=== PATIENT | female | born 1935 | race Caucasian/White ===

== ENCOUNTER 2019-06-07 17:17 | Emergency (ER) | payer MEDICARE ==
[~2019-06-07] VITALS: Ht 160 cm; Wt 72.6 kg
--- NOTE | 2019-06-07 17:25 | NUR ---
pt bibra from home to er bed 04. per report, pt's caregiver got concerned about pt being more sleepy today than usual. pt upon assessment is arousable, selectively answering random questions then closses eyes. pt placed on monitor. stable vitals noted. awaiting md hannah.
--- NOTE | 2019-06-07 17:38 | NUR ---
iv line started blood drawn and sent to lab.
--- NOTE | 2019-06-07 17:49 | NUR ---
dr mccauley at bedside for eval. family at bedside.
[2019-06-07 18:06] LABS: BASOPHILS # (AUTO) 0.1 /CMM (0.0-0.2); BASOPHILS % (AUTO) 1.2 % (0.0-2.0); HEMATOCRIT 40 % (33-45); HEMOGLOBIN 13.2 g/dL (11.5-14.8); LYMPHOCYTES # (AUTO) 1.9 /CMM (0.8-4.8); LYMPHOCYTES % (AUTO) 26.7 % (20.0-44.0); MEAN CORPUSCULAR HGB CONC 33 g/dl (31.0-36.0); MEAN CORPUSCULAR VOLUME 84 fL (82-100); MONOCYTES # (AUTO) 0.7 /CMM (0.1-1.30); MONOCYTES % (AUTO) 9.3 % (2.0-12.0); NEUTROPHILS # (AUTO) 4.5 /CMM (1.8-8.9); NEUTROPHILS % (AUTO) 62.8 % (43.0-81.0); PLATELET COUNT (AUTO) 242 /CMM (150-450); RED BLOOD CELL COUNT(AUTO) 4.72 MIL/uL (4.0-5.2); WHITE BLOOD COUNT (AUTO) 7.2 K/uL (4.3-11.0)
[2019-06-07 18:18] LABS: CALCIUM, SERUM 8.6 mg/dL (8.5-10.1); CARBON DIOXIDE 28 mmol/L (21-32); CHLORIDE 105 mmol/L (98-107); GLUCOSE 84 mg/dL (74-106); POTASSIUM 3.8 mmol/L (3.5-5.1); SODIUM SERUM 140 mmol/L (136-145); UREA NITROGEN, BLOOD 12 mg/dL (7-18)
[2019-06-07 18:23] LABS: ALANINE AMINOTRANSFERASE 13 U/L (12-78); ALBUMIN 3.1 g/dL (3.4-5.0); ALCOHOL, BLOOD < 3 mg/dL (0-0); ALKALINE PHOSPHATASE 99 U/L (46-116); ASPARTATE AMINOTRANSFERASE 17 U/L (15-37); BILIRUBIN,DIRECT 0.1 mg/dL (0.0-0.2); BILIRUBIN,TOTAL 0.8 mg/dL (0.2-1.0); TOTAL PROTEIN, SERUM 6.9 g/dL (6.4-8.2)
[2019-06-07 18:28] LABS: APPEARANCE,URINE Cloudy (CLEAR); BILIRUBIN,URINE Negative (NEGATIVE); BLOOD, URINE Small Ery/uL (NEGATIVE); COLOR,URINE Yellow (YELLOW); KETONES,URINE Negative (NEGATIVE); LEUKOCYTE ESTERASE ,URINE Large (NEGATIVE); NITRITE, URINE Negative (NEGATIVE); PH,URINE 6.5 (5.0-8.0); PROTEIN,URINE Trace mg/dl (NEGATIVE); UGLUCOSE Negative (NEGATIVE); UROBILINOGEN,URINE 0.2 EU/dL (0.2)
[2019-06-07 18:39] LABS: BACTERIA,URINE 2+ /HPF (None Seen); SQUAMOUS EPITHELIAL CELL,UR Few /HPF (None Seen); WBC,URINE 51-80 /HPF (0-3)
[2019-06-07] MEDS ORDERED: CEFTRIAXONE 1 G in IV D5W 50 ML IV ONE (19:00)
[2019-06-07] MEDS ORDERED: CEFTRIAXONE 1GM BAG (ER ONLY) 50 ML IV ONE (19:01)
--- NOTE | 2019-06-07 19:12 | NUR ---
report to shaker repairer lynda buitrago for rené.
[2019-06-07 19:17] LABS: SERUM AMMONIA 35 umol/L (11-32)
[2019-06-07 19:26] LABS: THYROID STIMULATING HORMONE 3.391 uIU/mL (0.358-3.74)
--- NOTE | 2019-06-07 19:59 | NUR ---
PATIENT RESTING COMFORTABLY IN BED 4 WITH FAMILY MEMBERS AT BEDSIDE. NOT IN ANY DISTRESS. CONNECTED TO MONITOR. BREATHING EVENLY AND UNLABORED WITH NO SHORTNESS OF BREATH.
[2019-06-07 20:35] VITALS: BP 129/72
--- NOTE | 2019-06-07 20:35 | NUR ---
IV removed. Catheter intact and site benign. Pressure and 4x4 applied to site. No bleeding noted.Patient discharged to home in stable condition. Written and verbal after care instructions given. Patient verbalizes understanding of instruction. Prescriptions provided to the patient and explained.
== END 2019-06-07 20:36 | disposition home or self-care (01) ==
LOC: ER 17:18
DX: N39.0 Urinary tract infection, site not specified (principal); I10 Essential (primary) hypertension; E78.00 Pure hypercholesterolemia, unspecified; G30.9 Alzheimer's disease, unspecified; F02.80 Dementia in other diseases classified elsewhere, unspecified severity, without behavioral disturbance, psychotic disturbance, mood disturbance, and anxiety
CPT/HCPCS: 36415; 70450; 80048; 80076; 80307; 81001; 82140; 84443; 84484; 85025; 85730; 87086; 93005; 96365; 99284; J0696 ×2; J7060; 81000-TC; G0480

== ENCOUNTER 2020-08-21 16:28 | Emergency (ER) | payer MEDICARE ==
[~2020-08-21] VITALS: Ht 160 cm; Wt 81.2 kg
--- NOTE | 2020-08-21 16:34 | NUR ---
BLOOD SUGAR 98.
--- NOTE | 2020-08-21 16:34 | NUR ---
PATIENT BIB RA 80 FROM HOME,CAREGIVER CALLED 911,AMS,RESPONDS TO PAIN,PINPOINT PUPILS,NO RESPONSE TO NARCAN,BLOOD SUGAR 100. STROKE CODE ACTIVATED. BLOOD SUGAR CHECK DONE. PATIENT IS ON MONITOR. WARM BLANKET ON FOR COMFORT.
[2020-08-21 16:45] LABS: BASOPHILS # (AUTO) 0.1 /CMM (0.0-0.2); BASOPHILS % (AUTO) 0.6 % (0.0-2.0); HEMATOCRIT 42 % (33-45); HEMOGLOBIN 13.9 g/dL (11.5-14.8); LYMPHOCYTES # (AUTO) 1.7 /CMM (0.8-4.8); LYMPHOCYTES % (AUTO) 20.8 % (20.0-44.0); MEAN CORPUSCULAR HGB CONC 33 g/dl (31.0-36.0); MEAN CORPUSCULAR VOLUME 86 fL (82-100); MONOCYTES # (AUTO) 0.7 /CMM (0.1-1.30); MONOCYTES % (AUTO) 8.6 % (2.0-12.0); NEUTROPHILS # (AUTO) 5.6 /CMM (1.8-8.9); PLATELET COUNT (AUTO) 240 /CMM (150-450); RED BLOOD CELL COUNT(AUTO) 4.96 MIL/uL (4.0-5.2)
--- NOTE | 2020-08-21 16:45 | NUR ---
The patient A/O X2. Able to communicate with clear speech. Able to follow commands. no weakness deficiency on extremities noted. respiration regular and unlabored. denies SOB. Denies pain. patient in room air and oxygen saturation WNL. Will continue to monitor.
--- NOTE | 2020-08-21 16:45 | NUR ---
STROKE CODE WAS CANCELED BY DR HAWLEY.
--- NOTE | 2020-08-21 16:54 | NUR ---
DAUGHTER,LOUANN ROWE [phone], CAME AND SPOKE WITH DR CORTES AND PATIENT ON THE WAY TO CT, SHE DID APPEAR TO RECOGNIZE DAUGHTER. ANOTHER DAUGHTER IN [place],SEDA ROWE, , CAN BE CALLED IF MORE INFORMATION IS NEEDED.
[2020-08-21 17:00] LABS: SERUM AMMONIA 10 umol/L (11-32)
[2020-08-21] MEDS ORDERED: IV NS 0.9% 1,000 ML BAG IV ONE (17:00)
[2020-08-21] MEDS ORDERED: SERT50TA PO (17:11)
[2020-08-21] MEDS ORDERED: MEMA10TA PO (17:11)
[2020-08-21] MEDS ORDERED: DILT180C93 PO (17:11)
[2020-08-21] MEDS ORDERED: PROG100C15 PO (17:11)
[2020-08-21] MEDS ORDERED: LORA-259 PO (17:11)
[2020-08-21] MEDS ORDERED: CHOL200059 PO (17:11)
[2020-08-21] MEDS ORDERED: ESTR0.5T4 PO (17:11)
[2020-08-21] MEDS ORDERED: ATOR10TA PO (17:11)
[2020-08-21 17:16] LABS: ACETAMINOPHEN < 10 ug/ml (10-30); ALANINE AMINOTRANSFERASE 18 U/L (12-78); ALBUMIN 3.4 g/dL (3.4-5.0); ALCOHOL, BLOOD < 3 mg/dL (0-0); ALKALINE PHOSPHATASE 76 U/L (46-116); ASPARTATE AMINOTRANSFERASE 19 U/L (15-37); BILIRUBIN,DIRECT 0.2 mg/dL (0.0-0.2); BILIRUBIN,TOTAL 0.9 mg/dL (0.2-1.0); CALCIUM, SERUM 9.1 mg/dL (8.5-10.1); CARBON DIOXIDE 28 mmol/L (21-32); CHLORIDE 105 mmol/L (98-107); CREATININE 1.1 mg/dL (0.6-1.3); GLUCOSE 99 mg/dL (74-106); POTASSIUM 4.1 mmol/L (3.5-5.1); SODIUM SERUM 141 mmol/L (136-145); TOTAL PROTEIN, SERUM 7.4 g/dL (6.4-8.2); UREA NITROGEN, BLOOD 25 mg/dL (7-18)
[2020-08-21 17:21] LABS: THYROID STIMULATING HORMONE 2.813 uIU/mL (0.358-3.74)
--- NOTE | 2020-08-21 17:55 | NUR ---
URINE COLLECTED AND TAKEN IT TO THE LAB
[2020-08-21 18:10] LABS: BILIRUBIN,URINE Negative (NEGATIVE); COLOR,URINE YELLOW (YELLOW); LEUKOCYTE ESTERASE ,URINE Negative (NEGATIVE); NITRITE, URINE Negative (NEGATIVE); PROTEIN,URINE Negative (NEGATIVE); UGLUCOSE Negative (NEGATIVE); UROBILINOGEN,URINE 0.2 EU/dL (0.2)
[2020-08-21 18:21] LABS: BACTERIA,URINE Rare /HPF (None Seen); SQUAMOUS EPITHELIAL CELL,UR 0-2 /HPF (None Seen); WBC,URINE 0-2 /HPF (0-3)
[2020-08-21 18:59] VITALS: BP 131/80
--- NOTE | 2020-08-21 18:59 | NUR ---
The patient is alert and oriented x2. Denies pain. In room air and denies SOB. Respiration regular and unlabored. Patient discharged to home in stable condition. Written and verbal after care instructions given. Patient verbalizes understanding of instruction. The patient discharged in stable conditon accompanied by daughter and caregiver.
== END 2020-08-21 19:00 | disposition home or self-care (01) ==
LOC: ER 16:35
DX: R41.82 Altered mental status, unspecified (principal); I10 Essential (primary) hypertension; E78.5 Hyperlipidemia, unspecified; F03.90 Unspecified dementia, unspecified severity, without behavioral disturbance, psychotic disturbance, mood disturbance, and anxiety; Z91.030 Bee allergy status; Z91.013 Allergy to seafood; Z88.8 Allergy status to other drugs, medicaments and biological substances; Z79.899 Other long term (current) drug therapy
CPT/HCPCS: 36415; 70450; 71045; 80048; 80076; 80299; 80307; 80320; 81001; 82140; 83605; 84443; 84484; 85025; 85730; 87040 ×2; 93005; 96360; 99285; J7030; G0480